=== PATIENT | male | born 1935 | race Caucasian/White ===

== ENCOUNTER 2017-09-09 09:12 | Outpatient (CLI) | payer MEDICARE | END 2017-09-09 09:13 | disposition home or self-care (01) | LOC: BICULT 09:12 | PROVIDERS: ATTEND Urology | DX: N20.0 Calculus of kidney (principal); Q61.3 Polycystic kidney, unspecified; N40.1 Benign prostatic hyperplasia with lower urinary tract symptoms; R35.0 Frequency of micturition | CPT/HCPCS: 74018; 76770 ==

== ENCOUNTER 2017-10-31 13:52 | Outpatient (CLI) | payer MEDICARE ==
--- NOTE | 2017-10-31 15:26 | MRI ---
MRI CERVICAL SPINE WITHOUT CONTRAST: HISTORY: Cervical stenosis. Left shoulder blade pain, radiating down the entire left arm. COMPARISON: None. TECHNIQUE: Cervical spine MRI is performed without intravenous Gadolinium administration. Multisequential, mult iplanar imaging was performed. FINDINGS: There is evidence of previous fusion change at C3-C4 with metallic susceptibility artifact due to the anterior fusion plate and vertebral body screws. Prosthesis at the C3-C4 disk space. Two millimeters of anterolisthesis of T2 upon T3, 5 mm anterolisthesis of C7 upon T1. No significant STIR hyperintensity to suggest vertebral body edema or ligamentous injury. Mild mucosal disease involving the right maxillary sinus. Visualized brain parenchyma, cervicomedullary junction, cervical cord, and the upper thoracic cord pollard ve a normal size and signal intensity. Increased abnormal signal intensity posterior to the dens suggesting panus from arthritic change. C2-C3: No significant disk-osteophyte complex. Moderate bilateral foraminal narrowing. C3-C4: Broad-based osteophyte ridge with a right paracentral component. Moderate central canal sten osis. No T2 hyperintensity of the cord. Moderate bilateral foraminal narrowing. C4-C5: Broad-based disk-osteophyte complex abuts the thecal sac. Mild central canal stenosis. Mild right and left foraminal narrowing. C5-C6: Broad-based disk-osteophyte complex abuts the thecal sac. Small right paracentral component with mild deformity of the right hemicord. Overall, mild central canal stenosis. Degenerative martines e of bilateral uncovertebral joints results in moderate to severe right and left foraminal narrowing. C6-C7: Broad-based disk-osteophyte complex abuts the thecal sac. Ventral subarachnoid space is main tained.. Degenerative changes of bilateral uncovertebral joints results in severe right and moderate to severe left foraminal narrowing. C7-T1: Broad-based disk-osteophyte complex and ligamentum flavum thickening result in severe central canal stenosis. Moderate to severe bilateral foraminal narrowing. IMPRESSION: 1. Severe central canal stenosis at C7-T1. 2. Postsurgical changes of the cervical spine as above. POS: [facility]
== END 2017-10-31 13:53 | disposition home or self-care (01) ==
LOC: TBSIIMAG 13:52
PROVIDERS: ATTEND Neurological Surgery
DX: M48.02 Spinal stenosis, cervical region (principal); Z98.1 Arthrodesis status
CPT/HCPCS: 72141

== ENCOUNTER 2018-04-27 14:57 | Outpatient (CLI) | payer MEDICARE | END 2018-04-27 14:58 | disposition home or self-care (01) | LOC: LABBT 14:57 | PROVIDERS: ATTEND Neurological Surgery | DX: Z01.810 Encounter for preprocedural cardiovascular examination (principal); M54.12 Radiculopathy, cervical region | CPT/HCPCS: 93005; 93010 ==

== ENCOUNTER 2018-05-06 06:22 | Observation (INO) | payer MEDICARE ==
[2018-04-27 15:14] VITALS: BMI 25.7
[2018-05-06] MEDS ORDERED: Bupivacaine HCl 0.5%/Epinephrine 1:200,000/PF 30 ml Vial ONE (06:35)
[2018-05-06] MEDS ORDERED: Thrombin 5000 UNITS/5 ML VIAL ONE (06:35)
[2018-05-06] MEDS ORDERED: CEFAZOLIN 2 GM/50 ML BAG ONE ×2 (06:56→15:30)
[2018-05-06] MEDS ORDERED: Fentanyl 250 MCG/5 ML VIAL ONE (07:16)
[2018-05-06 07:20] LABS: #Eosinphils 0.2 thou/uL (0.0-0.7); #Lymphocytes 1.8 thou/uL (1.20-3.40); #Monocytes 0.7 thou/uL (0.11-0.59); #Neutrophils 3.4 thou/uL (1.40-6.50); %Basophils 0.8 % (0.0-1.0); %Eosinophils 3.6 % (0.0-10.0); %Lymphocytes 29.6 % (21.0-51.0); %Monocytes 10.5 % (0.0-10.0); %Neutrophils 55.5 % (42.0-75.0); Hemoglobin 14.2 g/dL (14.0-18.0); Mean Corpuscular Hemoglobin 33.6 pg (27.0-31.0); Mean Corpuscular Volume 98.9 fL (78.0-98.0); Mean Platelet Volume 7.3 fL (7.4-10.4); Platelet Count 215 thou/uL (130-400); RBC Distribution Width 11.8 % (11.5-14.5); Red Blood Cell (RBC) Count 4.23 mill/uL (4.70-6.10); White Blood Cell (WBC) Count 6.1 thou/uL (4.8-10.8)
--- NOTE | 2018-05-06 07:35 | HP ---
HISTORY OF PRESENT ILLNESS: Mr. Parker is a pleasant gentleman, known to us for distant lumbar decompression in 2011, who returns today for evaluation of left upper extremity C8 pain, that started roughly 2 to 3 weeks ago. He has a history of on and off neck and shoulder pain. This is different and is associated with numbness as well. He has some mild hand clumsiness of the left side only. He has new MRI from [facility] that reveal significant spinal stenosis to the left at C7-T1 secondary to spondylolisthesis. In that interval, he also developed some C7 pains as well, and he is rather tight on the left sided at C6-C7. He has had epidural steroid injections, physical therapy and at this point, his pain is still significant to a point, where he wishes to proceed with surgery. PAST MEDICAL HISTORY: Significant for BPH, coronary arterial disease, and hyperlipidemia. CURRENT MEDICATIONS: 1. Benadryl. 2. Metoprolol. 3. Urimax. 4. Tamsulosin. 5. Finasteride. 6. Lovastatin. 7. Omeprazole. 8. Aspirin. 9. [id number]-wpr-[id number] medications. ALLERGIES: NO KNOWN DRUG ALLERGIES. PAST SURGICAL HISTORY: None listed. PHYSICAL EXAMINATION: GENERAL: The patient is alert and oriented x3. EXTREMITIES: Upper extremity, motor exam is normal. ASSESSMENT: Left-sided cervical radiculopathy. PLAN: Dr. Natarajan reviewed with the patient and opted for left-sided C6 through T1 foraminotomy and decompression. I explained to the patient the risks, benefits, and alternatives to the procedure. The patient expressed understanding and elected to go forward with surgery as discussed. The patient is fully capable of making medical decisions for himself and we will proceed with surgery as discussed. Job ID: [id number]
[2018-05-06 07:43] LABS: Anion Gap 11 mmol/L (10-20); BUN (Urea Nitrogen) 15 mg/dL (8.4-25.7); Calc. Creatinine Clearance 64 mL/min (70-130); Calcium 8.9 mg/dL (7.8-10.44); Carbon Dioxide 25 mmol/L (23-31); Chloride 109 mmol/L (98-107); Estimated GFR-MDRD 66; Glucose 89 mg/dL (83-110); Potassium 3.7 mmol/L (3.5-5.1); Sodium 141 mmol/L (136-145)
[2018-05-06] MEDS ORDERED: Fentanyl 100 MCG/2 ML VIAL ONE ×2 (09:05→09:24)
[2018-05-06] MEDS ORDERED: Tamsulosin HCl 0.4 MG CAP ONE (09:28)
[2018-05-06] MEDS ORDERED: Lidocaine 1% PF 5 ML VIAL ONE (10:45)
[2018-05-06] MEDS ORDERED: Glycopyrrolate 0.2 MG/ML 5 ML SYRINGE ONE (10:45)
[2018-05-06] MEDS ORDERED: Dexamethasone 20 MG/5 ML VIAL ONE (10:45)
[2018-05-06] MEDS ORDERED: PROPOFOL 200 MG/20 ML VIAL ONE (10:45)
[2018-05-06] MEDS ORDERED: ePHEDrine/0.9% NaCl/PF SYRINGE 50 mg/10 ml ONE (10:45)
[2018-05-06] MEDS ORDERED: Morphine 2 MG/ML SYRINGE ONE (12:05)
[2018-05-06] MEDS ORDERED: HYDROcodone/Acetaminophen 5/325 mg Tablet ONE (12:56)
--- NOTE | 2018-05-06 16:05 | OP ---
DATE OF PROCEDURE: 05/06/2018 BAGGAGE AND MAIL AGENT: Luis Díaz PA-C. INDICATION: Pain. DIAGNOSIS: Cervical radiculopathy. PROCEDURE PERFORMED: Left C6-C7, C7-T1 hemilaminectomy, medial facetectomy, foraminotomy. ANESTHESIA: General. TECHNIQUE: The patient was brought into the operating room, placed under general anesthesia. He was flipped from the supine to the prone position on the operating room table. A linear incision was planned, spanning C6 through T1. After prepping and draping, and after an operative pause, the incision was created. The soft tissues were swept away from midline. Self-retaining retractors were placed into the wound for optimal exposure. After confirming the appropriate levels on C-arm fluoroscopy , a small high speed cutting drill bit as well as 1 and 2 mm Kerrisons were used to perform a hemilaminectomy along C6-C7 and C7-T1. The laminectomy was extended laterally to encompass the medial aspect of the facet joints, where foraminotomies were performed over the exiting nerve roots. There was facet arthropathy most prominent at C7-T1 on the left side. The associated material was removed until the nerve root was decompressed. The wound was irrigated. Hemostasis was maintained throughout. The wound was then closed in anatomic layers and a pressure dressing was applied. There were no known procedural complications. Job ID: [id number] [facility]
[2018-05-06] MEDS ORDERED: Labetalol HCl 100 MG/20 ML VIAL ONE (16:41)
[2018-05-06] MEDS ORDERED: diphenhydrAMINE 50 MG/ML VIAL IVP PRN (17:59)
[2018-05-06] MEDS ORDERED: Ondansetron PF 4 MG/2 ML Vial IM PRN (17:59)
[2018-05-06] MEDS ORDERED: Mag-Al 1200 mg/1200 mg/30 ML UDCUP PO PRN (17:59)
[2018-05-06] MEDS ORDERED: Acetaminophen/Codeine 30-300mg Tablet PO PRN ×2 (17:59)
[2018-05-06] MEDS ORDERED: Acetaminophen 650 MG Suppository PR PRN (17:59)
[2018-05-06] MEDS ORDERED: Acetaminophen 325 MG TAB PO PRN (17:59)
[2018-05-06] MEDS ORDERED: Bisacodyl 10 MG SUPP PR PRN (17:59)
[2018-05-06] MEDS ORDERED: Morphine 4 MG/ML VIAL SLOW IVP PRN (17:59)
[2018-05-06] MEDS ORDERED: diphenhydrAMINE 25 MG CAP PO PRN (17:59)
[2018-05-06] MEDS ORDERED: tiZANidine HCl 4 MG TAB PO PRN (18:00)
[2018-05-06] MEDS ORDERED: Metoprolol Tartrate 5 MG/5 ML VIAL IVP SCH (19:30)
[2018-05-06] MEDS ORDERED: Propafenone HCl 150 MG TAB PO SCH (20:00)
[2018-05-06] MEDS: Sodium Chloride 0.9% 1,000 ML IV SCH (20:01)
[2018-05-06] MEDS ORDERED: CEFAZOLIN 2 GM/50 ML BAG IVPB SCH (22:00)
[2018-05-06] MEDS ORDERED: Amiodarone HCl 150 MG, Admixture Fee 1 EACH in Dextrose 5% in Water 100 ML IVPB SCH (23:00)
[2018-05-06] MEDS ORDERED: Amiodarone HCl 450 MG, Admixture Fee 1 EACH in Dextrose 5% in Water 250 ML IVPB SCH (23:00)
[2018-05-06 23:49] LABS: ALT (SGPT) 18 U/L (8-55); AST (SGOT) 27 U/L (5-34); Albumin 3.8 g/dL (3.4-4.8); Alkaline Phosphatase 66 U/L (40-150); Bilirubin, Direct 0.4 mg/dL (0.1-0.3); Bilirubin, Total 0.9 mg/dL (0.2-1.2); Protein, Total 6.5 g/dL (5.8-8.1)
[2018-05-06] MEDS: CEFAZOLIN 2 GM/50 ML BAG IVPB SCH (23:51)
[2018-05-07] MEDS ORDERED: Ondansetron PF 4 MG/2 ML Vial IVP PRN (01:15)
[2018-05-07] MEDS ORDERED: Tamsulosin HCl 0.4 MG CAP PO SCH ×2 (06:00→09:00)
[2018-05-07] MEDS: CEFAZOLIN 2 GM/50 ML BAG IVPB SCH (07:25)
[2018-05-07] MEDS: Sodium Chloride 0.9% 1,000 ML IV SCH (07:25)
--- NOTE | 2018-05-07 09:11 | PRG ---
DATE OF SERVICE: 05/07/2018 SUBJECTIVE: Mr. Parker is postop day 1 following posterior cervical decompression. The pains in his shoulder and arm are essentially resolved. He does have the expected pain around the incisional site and if he turns his head to the left, which is muscular in nature. He initially was planned to go home yesterday following surgery, but then fell into atrial fibrillation and was admitted overnight to telemetry for observation. Dr. Mirza was consulted with Cardiology and adjusted the medications. He has now been in a normal sinus rhythm this morning. Plan is to take him off his drip to see if he will remain in a regular rhythm and then he could potentially be discharged this afternoon with outpatient followup with Dr. Osman, who is his personal instrument lens generator. Job ID: [id number]
[2018-05-07 11:55] VITALS: BP 104/56; TEMP 98.1
--- NOTE | 2018-05-07 14:30 | EKG ---
Test Reason : Blood Pressure : / mmHG Vent. Rate : 125 BPM Atrial Rate : 159 BPM P-R Int : 000 ms QRS Dur : 132 ms QT Int : 346 ms P-R-T Axes : 000 033 014 degrees QTc Int : 499 ms Atrial fibrillation with rapid ventricular response Right bundle branch block Abnormal ECG When compared with ECG of 27-APR-2018 15:54, Atrial fibrillation has replaced Sinus rhythm Vent. rate has increased BY [address] now depressed in Anterior leads Confirmed by URIEL ALVARADO, DR. Jacobson ([id number]) on 05/07/2018 2:30:07 PM Referred By: CANDIS Confirmed By:DR. Indira TREVINO MD
[2018-05-07] MEDS ORDERED: Apixaban 5 MG TAB PO SCH (21:00)
--- NOTE | 2018-05-08 08:36 | DIS ---
DATE OF ADMISSION: 05/06/2018 DATE OF DISCHARGE: 05/07/2018 HISTORY: Mr. Parker is an 82-year-old gentleman, who was admitted to [facility] by Dr. Darvin Natarajan on 05/06/2018 with subsequent discharge on 05/07/2018. CANCELLED DICTATION Job ID: [id number]
== END 2018-05-07 14:37 | disposition home or self-care (01) ==
LOC: SDC 06:22 → 2SW 17:28
PROVIDERS: ADMIT Neurological Surgery; ATTEND Neurological Surgery
PROC: 01N10ZZ Release Cervical Nerve, Open Approach (ICD-10-PCS; principal; 2018-05-06)
DX: M43.13 Spondylolisthesis, cervicothoracic region (principal); M48.03 Spinal stenosis, cervicothoracic region; M54.12 Radiculopathy, cervical region; I48.91 Unspecified atrial fibrillation; N40.0 Benign prostatic hyperplasia without lower urinary tract symptoms; I25.10 Atherosclerotic heart disease of native coronary artery without angina pectoris; E78.5 Hyperlipidemia, unspecified; Z79.52 Long term (current) use of systemic steroids; Z79.82 Long term (current) use of aspirin; Z79.899 Other long term (current) drug therapy; Z98.890 Other specified postprocedural states
CPT/HCPCS: 63045; 63048 ×2; 76001; 80048; 80076; 83735; 84443; 85025; 93005; 96361; 96365; 96366; 96374 ×2; 96375 ×2; 96376; G0378; 93010; J0282; J0670; J1100; J2001; J2270; J2405; J2704; J3010; J7070

== ENCOUNTER 2019-08-09 12:45 | Outpatient (CLI) | payer MEDICARE ==
[2019-08-09 14:05] LABS: #Eosinphils 0.3 thou/uL (0.0-0.7); #Lymphocytes 1.5 thou/uL (1.20-3.40); #Monocytes 0.8 thou/uL (0.11-0.59); #Neutrophils 4.6 thou/uL (1.40-6.50); %Basophils 0.7 % (0.0-1.0); %Eosinophils 3.7 % (0.0-10.0); %Lymphocytes 20.3 % (21.0-51.0); %Monocytes 10.9 % (0.0-10.0); %Neutrophils 64.5 % (42.0-75.0); Hemoglobin 14.9 g/dL (14.0-18.0); Mean Corpuscular HGB CONC 34.1 g/dL (32.0-36.0); Mean Corpuscular Hemoglobin 33.7 pg (27.0-31.0); Mean Corpuscular Volume 98.9 fL (78.0-98.0); Mean Platelet Volume 7.5 fL (7.4-10.4); Platelet Count 235 thou/uL (130-400); RBC Distribution Width 11.9 % (11.5-14.5); Red Blood Cell (RBC) Count 4.43 mill/uL (4.70-6.10); White Blood Cell (WBC) Count 7.2 thou/uL (4.8-10.8)
[2019-08-09 14:10] LABS: INR-International Normal Ratio 1.1; Prothrombin Time 13.8 SEC (12.0-14.7)
[2019-08-09 14:23] LABS: Anion Gap 11 mmol/L (10-20); BUN (Urea Nitrogen) 19 mg/dL (8.4-25.7); Calc. Creatinine Clearance 0 mL/min (70-130); Calcium 9.6 mg/dL (7.8-10.44); Carbon Dioxide 28 mmol/L (23-31); Chloride 105 mmol/L (98-107); Estimated GFR-MDRD 68; Glucose 96 mg/dL (83-110); Potassium 4.3 mmol/L (3.5-5.1); Sodium 140 mmol/L (136-145)
--- NOTE | 2019-08-12 08:20 | EKG ---
Test Reason : Blood Pressure : / mmHG Vent. Rate : 059 BPM Atrial Rate : 059 BPM P-R Int : 162 ms QRS Dur : 132 ms QT Int : 404 ms P-R-T Axes : 058 059 027 degrees QTc Int : 399 ms Sinus bradycardia Right bundle branch block Cannot rule out Inferior infarct , age undetermined Abnormal ECG When compared with ECG of 06-MAY-2018 16:41, Sinus rhythm has replaced Atrial fibrillation Vent. rate has decreased BY 66 BPM Minimal criteria for Inferior infarct are now Present Confirmed by DR. Tomasa LEIJA ([id number]) on 08/12/2019 8:20:24 AM Referred By: MAUDE Confirmed By:DR. Tomasa LEIJA
== END 2019-08-09 12:46 | disposition home or self-care (01) ==
LOC: LABBT 12:45
PROVIDERS: ATTEND Orthopaedic Surgery
DX: Z01.818 Encounter for other preprocedural examination (principal); M75.121 Complete rotator cuff tear or rupture of right shoulder, not specified as traumatic
CPT/HCPCS: 80048; 85025; 85610; 93005; 93010

== ENCOUNTER 2019-08-10 13:00 | Inpatient (IN) | payer MEDICARE ==
[2019-08-09 12:28] VITALS: BMI 25.1
[2019-08-12] MEDS ORDERED: Vancomycin 1.5 GRAM/300 ML BAG 1.5 GM/300 ML BAG ONE (06:16)
[2019-08-12] MEDS ORDERED: Sodium Chloride 0.9% 100 ML ONE (06:16)
[2019-08-12] MEDS ORDERED: Tranexamic Acid 1,000 MG/10 ML VIAL ONE ×2 (06:16→09:49)
[2019-08-12] MEDS ORDERED: Midazolam HCl 2 mg/2 ml Vial ONE (06:25)
[2019-08-12] MEDS ORDERED: Lidocaine 1% (PF) 30 ML VIAL ONE (06:25)
[2019-08-12] MEDS ORDERED: Fentanyl 100 MCG/2 ML VIAL ONE ×2 (06:25→07:14)
[2019-08-12] MEDS ORDERED: traMADol HCl 50 MG TAB PO PRN ×4 (07:07→09:45)
[2019-08-12] MEDS ORDERED: HYDROcodone/Acetaminophen 10/325 mg Tablet PO PRN ×4 (07:07→09:45)
[2019-08-12] MEDS ORDERED: Ropivacaine 0.2% 550 ML 550 ML NERVE BLCK SCH (07:07)
[2019-08-12] MEDS ORDERED: Ondansetron PF 4 MG/2 ML Vial IVP PRN ×2 (07:07→09:45)
[2019-08-12] MEDS ORDERED: Promethazine HCl 25 MG/ML VIAL IM PRN (07:07)
[2019-08-12] MEDS ORDERED: Acetaminophen 325 MG TAB PO PRN ×2 (07:07→09:45)
[2019-08-12] MEDS ORDERED: Zolpidem Tartrate 5 MG TAB PO PRN ×2 (07:07→09:45)
[2019-08-12] MEDS ORDERED: Fentanyl 100 MCG/2 ML VIAL SLOW IVP PRN (07:08)
[2019-08-12] MEDS ORDERED: Phenylephrine 10 MG/ML VIAL ONE (08:47)
[2019-08-12] MEDS ORDERED: diphenhydrAMINE 50 MG CAP PO PRN (09:45)
[2019-08-12] MEDS ORDERED: Methocarbamol 500 MG TAB PO PRN (09:45)
[2019-08-12] MEDS ORDERED: Methocarbamol 1 GM/10 ML VIAL SLOW IVP PRN (09:45)
[2019-08-12] MEDS ORDERED: Bisacodyl 10 MG SUPP PR PRN (09:45)
[2019-08-12] MEDS ORDERED: Ondansetron ODT 4 MG TAB PO PRN (09:45)
[2019-08-12] MEDS ORDERED: Milk Of Magnesia 30 ML UDCUP PO PRN (09:45)
[2019-08-12] MEDS ORDERED: Morphine 2 MG/ML SYRINGE SLOW IVP PRN (09:45)
[2019-08-12] MEDS ORDERED: Famotidine 20 MG TAB PO SCH (10:15)
[2019-08-12] MEDS ORDERED: PROPOFOL 200 MG/20 ML VIAL ONE (11:13)
[2019-08-12] MEDS ORDERED: Rocuronium Bromide 10 MG/ML (10ML VIAL) ONE (11:13)
[2019-08-12] MEDS ORDERED: Ropivacaine 0.5% HCl/PF (150 MG/30 ML VIAL) ONE (11:13)
[2019-08-12] MEDS ORDERED: Glycopyrrolate 0.2 MG/ML 5 ML SYRINGE ONE (11:13)
[2019-08-12] MEDS ORDERED: EPHEDRINE 25 MG/5 ML SYRINGE ONE (11:13)
[2019-08-12] MEDS ORDERED: Lidocaine 1% PF 5 ML VIAL ONE (11:13)
[2019-08-12] MEDS ORDERED: Ropivacaine 0.2% HCl/PF (40 MG/20 ML VIAL) ONE (11:13)
[2019-08-12] MEDS: Dextrose 5 %-0.45 % NaCl 1,000 ML IV SCH (11:53)
[2019-08-12] MEDS: CEFAZOLIN 2 GM in Premix Bag 1 BAG IVPB SCH ×2 (14:31→21:49)
--- NOTE | 2019-08-12 15:11 | OP ---
DATE OF PROCEDURE: 08/12/2019 PREOPERATIVE DIAGNOSIS: Left full-thickness supraspinatus and infraspinatus tear with retraction, massive rotator cuff tear. POSTOPERATIVE DIAGNOSIS: Left full-thickness supraspinatus and infraspinatus tear with retraction, massive rotator cuff tear. PROCEDURE PERFORMED: Right reverse shoulder arthroplasty. RETAIL ASSOCIATE: None. ANESTHESIOLOGIST: Shayy Dickens MD. ANESTHESIA: The patient received general with interscalene block. ESTIMATED BLOOD LOSS: 300 mL. TOURNIQUET TIME: None. IMPLANTS: A Tournier Perform 25-mm baseplate with a 6.5 x 14 mm post , 14 anterior, 26 mm superior, 38 mm locking screw inferior, sphere of 39 mm standard, stem 6A Flex, low offset tray, and a 9 mm poly. ANTIBIOTICS: Ancef 2 g, vancomycin 1 g, and TXA 1 g. COMPLICATIONS: None. HISTORY OF PRESENT ILLNESS: Mr. Parker is a pleasant 83-year-old male with increasing right shoulder pain. Symptoms are severe as high as 10/10. I discussed with the patient the risks and benefits of right shoulder replacement to include pain, scar, bleeding, infection, damage to vital structures, decreased range of motion and strength, need for further procedures, continued pain despite surgical intervention, loss of life or limb. The patient understood the risks and benefits of the proceed and elected to proceed. DESCRIPTION OF PROCEDURE: Time-out was performed designating the patient's right upper extremity as the operative site based on site, consents, and marking. After time-out, the patient's right upper extremity was prepped and draped in sterile fashion. After being placed in beach-chair position with bony prominences well padded, made a deltopectoral incision down through skin, found the cephalic vein , came between the cephalic and the pectoralis, took down the portion of the pectoralis, controlled bleeding, moved into the joint, came down where the biceps was, peeled the subscapularis off, placed #5 Ethibond into it to control the subscapularis. I did peel off the entire capsule inferiorly, dislocated the head. We made our first cut, which was little bit larger than posterior cut, then anterior posterior, which we broached and came down and recut to get use a long stem to help it center in good position that we liked. After this, we placed a long stem and found good position for our size stem. We then milled and placed manhole cover over and moved to the glenoid at 360 degree release of the glenoid and placed a 10-degree tilt baseplate on the inferior aspect of the glenoid, drilled our center pin. I then reamed and then placed our drill for the baseplate, drilled and removed. We placed a baseplate into position screwing with 14 mm screw, getting bicortically good fix. We placed one posterior screw for compression. I placed two superior inferior screws for locking. We then cleaned out the periphery of the rim. I felt we were right at the scapular neck and I thought like the 39 would cover anterior to posterior and superior to inferior and we placed a 39 mm Glenosphere. We backed the humerus, broached back up and put a short stem 6 and broached it down, cleaned off the top, trialed with a 9 and a high offset. I felt that there was some abutment superiorly, therefore I went to the low offset to help with lateralization, but minimized some of the abutment of the acromion. I will be overall happy with the patient's components of rotation and tightness of the conjoint. We removed, drilled 2 holes for #5 Ethibond near the biceps groove, placed our final implant in place and packed into position, reduced the shoulder, took the remnant of the subscapularis, sewed it to itself, so that it left some remnant scar tissue of the supraspinatus with #2 Ethibond. We washed. We closed the subcu. We closed the deltopectoral interval with 0 Vicryl, 2-0 and skin naeem. The patient will be admitted to the hospital overnight to see how he does. The patient will be followed by Pain inhouse . Job ID: [id number] [facility]
[2019-08-12] MEDS ORDERED: Vancomycin 1.5 GRAM/300 ML BAG 1.5 GM in Premix Bag 1 BAG IVPB SCH (18:00)
[2019-08-12] MEDS: Famotidine 20 MG TAB PO SCH (20:13)
[2019-08-13] MEDS: Dextrose 5 %-0.45 % NaCl 1,000 ML IV SCH (02:15)
[2019-08-13 07:06] LABS: Hemoglobin 13.9 g/dL (14.0-18.0); Mean Corpuscular HGB CONC 34.3 g/dL (32.0-36.0); Mean Platelet Volume 7.1 fL (7.4-10.4); Platelet Count 205 thou/uL (130-400); RBC Distribution Width 12.1 % (11.5-14.5); White Blood Cell (WBC) Count 11.5 thou/uL (4.8-10.8)
[2019-08-13] MEDS ORDERED: Multivit, Therapeutic 1 TAB PO SCH (09:00)
[2019-08-13] MEDS ORDERED: CHONDROITIN PO SCH (09:00)
[2019-08-13] MEDS ORDERED: Magnesium Oxide 400 MG TAB PO SCH (09:00)
[2019-08-13] MEDS ORDERED: SAW PALMETTO PO SCH (09:00)
[2019-08-13] MEDS ORDERED: GARLIC 1000 MG PO SCH (09:00)
[2019-08-13] MEDS ORDERED: Aspirin Chewable 81 MG TAB PO SCH (09:00)
[2019-08-13] MEDS ORDERED: Ubidecarenone 50 MG CAP PO SCH (09:00)
[2019-08-13] MEDS ORDERED: Fish Oil 1,000 MG CAP PO SCH (09:00)
[2019-08-13] MEDS ORDERED: Tamsulosin HCl 0.4 MG CAP PO SCH (09:00)
[2019-08-13] MEDS ORDERED: TURMERIC 500 MG PO SCH (09:00)
[2019-08-13] MEDS ORDERED: GLUCOSAMINE PO SCH (09:00)
[2019-08-13] MEDS ORDERED: Cyanocobalamin (Vitamin B-12) 1,000 MCG TAB PO SCH (09:00)
[2019-08-13] MEDS: Famotidine 20 MG TAB PO SCH (10:03)
[2019-08-13] MEDS ORDERED: Apixaban 5 MG TAB PO SCH ×2 (11:15→21:00)
[2019-08-13 15:40] VITALS: BP 137/81; TEMP 98
[2019-08-13] MEDS ORDERED: Lovastatin 20 MG TAB PO SCH (17:00)
[2019-08-13] MEDS ORDERED: Finasteride 5 MG TAB PO SCH (21:00)
[2019-08-13] MEDS ORDERED: Potassium Chloride 8 MEQ TAB PO SCH (21:00)
== END 2019-08-13 15:30 | disposition home or self-care (01) | DRG 483 ==
LOC: SURG A 08-12 05:44
PROVIDERS: ADMIT Orthopaedic Surgery; ATTEND Orthopaedic Surgery
PROC: 0RRJ00Z Replacement of Right Shoulder Joint with Reverse Ball and Socket Synthetic Substitute, Open Approach (ICD-10-PCS; principal; 2019-08-12)
DX: M75.121 Complete rotator cuff tear or rupture of right shoulder, not specified as traumatic (principal); M51.36 Other intervertebral disc degeneration, lumbar region; I25.10 Atherosclerotic heart disease of native coronary artery without angina pectoris; I10 Essential (primary) hypertension; N40.0 Benign prostatic hyperplasia without lower urinary tract symptoms; E78.00 Pure hypercholesterolemia, unspecified; Z87.891 Personal history of nicotine dependence; Z90.49 Acquired absence of other specified parts of digestive tract; Z79.899 Other long term (current) drug therapy
CPT/HCPCS: 36415; 80048; 85025; 85027; 85610; 93005; A4306; C1713; C1776; J0690; J2001; J2250; J2270; J2370; J2405; J2704; J2795; J3010; J3490; Q0163

== ENCOUNTER 2019-08-15 18:02 | Emergency (ER) | payer MEDICARE ==
[2019-08-15] MEDS ORDERED: Bacitracin 1 PK ONE (18:37)
== END 2019-08-15 19:02 | disposition home or self-care (01) ==
LOC: ERS 18:02
DX: S40.251A Superficial foreign body of right shoulder, initial encounter (principal); I48.91 Unspecified atrial fibrillation; E78.00 Pure hypercholesterolemia, unspecified; K21.9 Gastro-esophageal reflux disease without esophagitis; Z87.891 Personal history of nicotine dependence; Z79.01 Long term (current) use of anticoagulants; W45.8XXA Other foreign body or object entering through skin, initial encounter
CPT/HCPCS: 99283

== ENCOUNTER 2020-05-16 08:52 | Outpatient (CLI) | payer MEDICARE ==
--- NOTE | 2020-05-16 09:23 | RAD ---
Exam: Lumbar spine 2 views HISTORY: Acute bilateral low back pain, without sciatica. Patient fell 2 weeks ago FINDINGS: 5 lumbar type vertebra. Vertebral body height is maintained. No fracture. Moderate loss of disc space height at L4-L5. Mild loss of disc space height at L5-S1. Hypertrophy of the posterior elements at L3-L4, L4-L5 and L5-S1 Spinal listhesis: 2.3 mm of anterolisthesis of L4 3 upon L4 Atherosclerosis of a nonaneurysmal aorta Visually sacrum and bony pelvis are intact IMPRESSION: 1. No fracture. 2. 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
--- NOTE | 2020-05-16 10:54 | RAD ---
AP PELVIS: HISTORY: Back pain and sciatica. FINDINGS: Mild symmetric degenerative changes at both hips. Pelvis is otherwise unremarkable. The SI joints a ppear symmetric. IMPRESSION: There are degenerative changes at both hips. Spurring from the femoral head may be more pronounced o n the left. Bony pelvis otherwise unremarkable. POS: [facility]
== END 2020-05-16 08:53 | disposition home or self-care (01) ==
LOC: BICRAD 08:52
PROVIDERS: ATTEND Family Medicine
DX: M54.5 Low back pain (principal); M16.0 Bilateral primary osteoarthritis of hip; M51.36 Other intervertebral disc degeneration, lumbar region
CPT/HCPCS: 72100; 72170

== ENCOUNTER 2025-03-11 09:41 | Outpatient (CLI) | payer MEDICARE | END 2025-03-11 09:42 | disposition home or self-care (01) | LOC: SCSRAD 09:41 | PROVIDERS: ATTEND Family Medicine | DX: K52.9 Noninfective gastroenteritis and colitis, unspecified (principal) | CPT/HCPCS: 74019 ==